=== PATIENT | female | born 1960 | race Caucasian/White ===

== ENCOUNTER 2025-01-31 13:05 | Emergency (ER) | payer OTHER, SELFPAY ==
[2025-01-31 13:18] VITALS: BP 139/57; PULSE 67; RESP 16; TEMP 36.9; O2SAT 100
--- NOTE | 2025-01-31 13:47 | PC.NURSE ---
boostrix,tdap, lot #[id number] exp.04/08/27 nickie fernández, was unable to put order in.
--- NOTE | 2025-01-31 13:53 | ED_ITS ---
HPI - Wound/Laceration General Chief Complaint: Wound/Laceration Stated Complaint: Laceration to Right Thumb Time Seen by Provider: 01/31/25 13:35 Source: patient and RN notes reviewed Mode of arrival: ambulatory Limitations: no limitations History of Present Illness HPI narrative: 64-year-old female presents [facility] complaining of laceration right thumb. Patient was using a Mandarin or cutting acute come for when she sliced the lateral side of her thumb. Patient reports she through the skin away. Patient states she cannot stop the bleeding, she states she takes Xarelto for atrial fibrillation. Paste that the bleeding is oozing. Patient denies any numbness or tingling to to her thumb. Patient states there is pain to the lateral side of the thumb. Related Data Home Medications ?Medication ?Instructions ?Recorded ?Confirmed ?Last Taken ?Type ascorbate calcium (vitamin C) 500 500 mg PO DAILY 09/29/20 01/31/25 Unknown History mg tablet cholecalciferol (vitamin D3) 50 50 mcg PO DAILY 09/29/20 01/31/25 Unknown History mcg (2,000 unit) capsule levothyroxine 125 mcg tablet 125 mcg PO DAILY 09/29/20 01/31/25 Unknown History (Euthyrox) simvastatin 10 mg tablet 10 mg PO DAILY 09/29/20 Unknown History amiodarone 200 mg tablet (Pacerone) mg 01/31/25 Unknown History levothyroxine 150 mcg tablet mcg 01/31/25 Unknown History metoprolol succinate 25 mg mg PO 01/31/25 Unknown History tablet,extended release 24 hr montelukast 10 mg tablet mg 01/31/25 Unknown History rivaroxaban 20 mg tablet (Xarelto) mg 01/31/25 Unknown History Allergies Allergy/AdvReac Type Severity Reaction Status Date / Time No Known Allergies Allergy Unverified 01/31/25 13:07 Review of Systems Review of Systems: CONSTITUTIONAL: Denies fever, chills, or sweats. EYES: Denies visual changes, redness, or discharge. ENT: Denies rhinorrhea, congestion, sore throat, or otalgia. CARDIOVASCULAR: Denies chest pain, palpitations, or edema. RESPIRATORY: Denies cough or dyspnea. GASTROINTESTINAL: Denies abdominal pain, nausea, vomiting, or diarrhea. GENITOURINARY: Denies dysuria or hematuria. SKIN: Denies rash or itching. Positive for skin avulsion. MUSCULOSKELETAL: Denies back pain, joint pain, or myalgia. NEUROLOGIC: Denies headache, numbness, or weakness. PSYCHIATRIC: Denies anxiety or depression. All other systems reviewed are negative, except as documented in HPI. [facility] Past Medical History Medical History Hypertension Disorder of thyroid Pneumonia Hyperlipidemia Anal cancer 2004 Surgical History Surgical History History of hysterectomy due to prolapse History of colposcopy History of bladder surgery Bladder sling Family History Family History Mother Diabetes mellitus Hypertension Father Hypertension Sibling Diabetes mellitus Social History Social History Smoking status: Former smoker Smoking end date: 08/13/03 Alcohol intake: current Alcohol use details: occasional Substance use: never Comments At the time of my signature, I reviewed and agree with the nursing past medical, surgical, social, and family history. There is no relevant family history pertinent to the patient complaint. Exam Narrative: GENERAL: This is a well-nourished, well-developed adult, in no apparent distress. They are non ill-appearing, nontoxic appearing. HEAD: normocephalic, atraumatic. EYES: Sclera clear/white. Conjunctiva normal. Vision is grossly intact. Extraocular movements intact EARS: External ears normal,Hearing grossly intact. NOSE: External nose normal THROAT: Mucous membranes moist, NECK: Neck supple, CARDIOVASCULAR: Regular rate and rhythm RESPIRATORY: Respiratory rate normal, respiratory effort nonlabored, no respiratory distress SKIN: Right thumb: There is skin avulsion to the lateral right thumb extends from the tip of the right thumb and proximal to the DIP joint. Avulsion is measuring approximately 3 cm x 3/4cm. Skin does not approximate. Subcutaneous tissues present. Slight bloody discharge oozing from site. Patient is able to flex and extend her thumb against resistance at the DIP and MCP joint. Normal sensation of the thumb. Neurovascular status intact distal injury. Nail beds intact. Finger pad is intact. Capillary refill less than 2 seconds. NEURO: awake, alert, and oriented to person, place and time. There were no obvious focal neurologic abnormalities. EXTREMITIES: No joint tenderness, effusion, or edema noted. Course Course Emergency Course: Portions of this record may have been created with voice recognition software Level of Care: Express Care Visit Vital Signs Vital signs: Vital Signs Temperature 98.5 F 01/31/25 13:18 Pulse Rate 67 01/31/25 13:18 Respiratory Rate 16 01/31/25 13:18 Blood Pressure 139/57 L 01/31/25 13:18 Pulse Oximetry 100 01/31/25 13:18 Oxygen Delivery Room Air 01/31/25 13:18 Temperature 98.5 F 01/31/25 13:18 Pulse Rate 67 01/31/25 13:18 Respiratory Rate 16 01/31/25 13:18 Blood Pressure 139/57 L 01/31/25 13:18 Pulse Oximetry 100 01/31/25 13:18 Oxygen Delivery Room Air 01/31/25 13:18 Reviewed MDM - Wound/Laceration MDM Narrative Medical decision making narrative: Attempted hemostasis with direct pressure and a pressure bandage, however it continued to ooze a slight bloody discharge after reassessment. Surgicel applied over the wound bed. Wound was irrigated and dressed by nursing staff. Hemostasis successfully achieved with Surgicel. Wound does not approximate well, patient not bring the skin tissue to re attach, no sutures would be beneficial to wound. Will Prophylactically treat the patient with cephalexin recommend follow-up with hand specialist. Patient's tetanus is updated today. Discussed physical exam findings. Advised supportive measures and signs/symptoms to go to the ER. Pt is appropriate for outpt treatment and f/u. Differential Diagnosis Differential diagnosis: Likely laceration, abrasion and avulsion of skin Critical Care Time Critical Care Time Critical Care Time: No Discharge Plan Discharge Clinical Impression: Avulsion of skin of right thumb Qualifiers: Encounter type: initial encounter Qualified Code(s): S61.001A - Unspecified open wound of right thumb without damage to nail, initial encounter Patient Disposition: Home Condition: Stable Instructions: Antibiotic Form, Skin Avulsion (ED) Additional Instructions: Please keep the dressing on until you see Dr. Reyes. If you have to change the dressing this week, please wash the wound with mild soap and water. Please apply wet to dry dressing over the affected area. Keep it covered at all times. Avoid any dirty water such as pools, lakes, hot tubs, baths until the wound has completely resolved. Your tetanus was updated today. Take the antibiotic as directed to prevent any infection. Developing worsening redness, swelling, uncontrolled bleeding, green or yellow drainage, worsening pain, or numbness or tingling, or any other concerns please go to the ER immediately. Patient Language: Monegasque Prescriptions: New cephalexin 500 mg capsule 500 mg PO Q6H 7 Days Qty: 28 0RF No Action amiodarone [Pacerone] 200 mg tablet levothyroxine 150 mcg tablet montelukast 10 mg tablet metoprolol succinate 25 mg tablet extended release 24 hr PO Xarelto 20 mg tablet levothyroxine [Euthyrox] 125 mcg tablet 125 mcg PO DAILY simvastatin 10 mg tablet 10 mg PO DAILY cholecalciferol (vitamin D3) 50 mcg (2,000 unit) capsule 50 mcg PO DAILY ascorbate calcium (vitamin C) 500 mg tablet 500 mg PO DAILY Follow-up/Referrals: Santiago Reyes MD [Physician] - Sanborn,Nitesh Dash MD [Primary Care Provider] - Time of Disposition: 14:11
== END 2025-01-31 14:28 | disposition home or self-care (01) ==
PROVIDERS: PCP Internal Medicine
DX: S61.001A Unspecified open wound of right thumb without damage to nail, initial encounter (principal); W27.4XXA Contact with kitchen utensil, initial encounter; Z23 Encounter for immunization; I48.91 Unspecified atrial fibrillation; Z79.01 Long term (current) use of anticoagulants; I10 Essential (primary) hypertension; E78.5 Hyperlipidemia, unspecified; Z85.048 Personal history of other malignant neoplasm of rectum, rectosigmoid junction, and anus; Z87.891 Personal history of nicotine dependence
CPT/HCPCS: 90471; 90715; 99213; G0463